=== PATIENT | female | born 1965 | race American Indian/Alaskan Native ===

== ENCOUNTER 2018-06-14 08:45 | Outpatient (CLI) | payer OTHER | END 2018-06-14 08:46 | disposition home or self-care (01) | LOC: PAT 08:45 ==

== ENCOUNTER 2018-07-07 06:06 | Day surgery (SDC) | payer OTHER ==
[2018-07-07 07:15] VITALS: BMI 24.0
[2018-07-07] MEDS ORDERED: Lidocaine 1% Inj (20ml) ONE (07:20)
[2018-07-07] MEDS ORDERED: Bupivacaine 0.25% 50 ML INJ IJ ONE (07:20)
[2018-07-07] MEDS ORDERED: Bupivacaine 0.5% 50 ML IJ ONE (07:20)
[2018-07-07] MEDS ORDERED: Propofol 10 mg/ml Inj (20 ML) ONE (07:22)
[2018-07-07] MEDS ORDERED: Dexamethasone 4 mg/1 ml ONE (07:37)
[2018-07-07] MEDS ORDERED: Triamcinolone Acetonide 40 mg/mL Inj ONE ×2 (07:39→07:49)
[2018-07-07] MEDS ORDERED: Albuterol HFA 90 mcg/actuation (8 g) ONE (08:07)
[2018-07-07] MEDS ORDERED: ePHEDrine 50 mg/ml Inj ONE (08:31)
[2018-07-07] MEDS ORDERED: Oxycodone/Acetaminophen 5/325 mg Tab PO PRN ×2 (08:33)
--- NOTE | 2018-07-07 08:37 | PCM.SURG1 ---
Surgeon's Initial Post Op Note - Surgeon's Notes Surgeon: Dr. Nemesio Lee, EDNAM, Dr. Palmer Lee DPM Clinical Education Academic Coordinator: Dr. Ciara Restrepo, PGY1 Type of Anesthesia: General LMA Anesthesia Administered By: Dr. Arnold Pre-Operative Diagnosis: Left foot plantar fasciitis Operative Findings: see dictation. I: post op- 20 cc 0.5% Marcaine plain, 1 cc Kenalog 40. M: 3-0 Nylon Post-Operative Diagnosis: same as above Operation Performed: Left foot plantar fascial release endoscopically Specimen/Specimens Removed: none Estimated Blood Loss: EBL {In ML}: 1 Blood Products Given: N/A Drains Used: No Drains Post-Op Condition: Good Date of Surgery/Procedure: 07/07/18 Time of Surgery/Procedure: 08:37
[2018-07-07] MEDS ORDERED: Lactated Ringer's 1,000 ML IV SCH (08:45)
[2018-07-07 09:32] VITALS: RESP 20; TEMP 97.6; O2SAT 98
[2018-07-07 10:13] VITALS: BP 131/58; PULSE 75
--- NOTE | 2018-07-07 14:37 | PCM.OP ---
Operative Report - Operative Report Date of Surgery/Procedure: 07/07/18 Time of Surgery/Procedure: 08:00 Surgeon: Dr. Nemesio Lee DPM, Dr. Palmer Lee DPM Blood Tester Fowl: Dr. Ciara Restrepo PGY1 Anesthesia/Sedation: General Anesthesia Pre-Operative Diagnosis: Left foot Plantar Fasciitis Post-Operative Diagnosis: same as above Indication for Surgery: The patient is a 52 year-old female with the above diagnoses. The patient has exhausted all conservative treatment at this time and now requires surgical intervention. The patient signed the consent after careful explanation of risks, benefits, complication and alternatives for surgical procedure. No guarantees were given nor implied. NPO status was confirmed prior to taking patient to the OR. Operative Findings: The patient was brought in to the operating room and placed on the operating room table in a supine position. Timeout was performed for identification of the correct patient and procedure. After induction of General anesthesia, a pneumatic tourniquet was applied to the left ankle at 250 mmHg. At this time, the left foot was prepped and draped in normal sterile manner and the procedure began. Procedure/Operation Description: Attention was then directed to the medial aspect of the heel where approximately 1 cm from the calcaneal drop-off, a vertical incision was made overlying the plantar fascia at approximately 1 cm in length. Next, a plantar fascial elevator was utilized to swoop under the plantar fascia to the lateral aspect of the plantar fascia. Once it was confirmed that the spatula was between the plantar fascia dorsally and subcutaneous fat plantarly, a cannula and trocar were placed in the medial portal and inserted until they were visually laterally. Another 1- cm vertical incision was made to the lateral aspect of the heel. Q-tips were used to clean out the field. Next, under endoscopy, the plantar fascia was clearly visible and the medial band was cut utilizing the instrument from the EPF set. Approximately 50% of the plantar fascia was resected medially. Images were taken of the resection. Muscle belly was noted and kept intact. The foot was then placed in various ranges of motion noting that appropriate motion was achieved and the medial band was clearly released. The wound was then flushed with copious amounts of sterile normal saline. The medial and lateral incisions was re-approximated using 3-0 Nylon. At this time, patient was injected with 20 cc of 0.5% Marcaine plain to the left plantar heel at the incision site. Next patient was injected with 1 cc 40mg/ml of Kenalog as well to the incision sites. Postoperative bandages included betadine, Adaptic, DSD and an RICHIE wrap to the left foot. Estimated Blood Loss: 1 cc Complications: none Discharge & Condition: The patient tolerated the anesthesia and procedure well and was escorted to the recovery room with vital signs stable and neuro-vascular status intact to the left foot. Patient to ambulate in a CamBoot and to follow up with Dr. Lee within 1 week of discharge.
== END 2018-07-07 10:45 | disposition home or self-care (01) ==
LOC: SDS 06:06
PROVIDERS: ATTEND Podiatrist Foot & Ankle Surgery
DX: M72.2 Plantar fascial fibromatosis (principal)
CPT/HCPCS: 29893; 84703; J0690; J2001; J2405; J2704; J3010; J3301; J7120